=== PATIENT | female | born 1965 | race Hispanic/Latino ===

== ENCOUNTER 2024-02-14 16:45 | Emergency (ER) | payer OTHER ==
[~2024-02-14] VITALS: Ht 154.9 cm; Wt 67.6 kg
[2024-02-14 17:39] VITALS: TEMP 97.9
[2024-02-14 20:55] VITALS: PULSE 95; RESP 18; O2SAT 100
== END 2024-02-14 20:59 | disposition home or self-care (01) ==
LOC: ER 17:03
DX: H43.11 Vitreous hemorrhage, right eye (principal); E11.610 Type 2 diabetes mellitus with diabetic neuropathic arthropathy
CPT/HCPCS: 99282